=== PATIENT | male | born 1990 | race Caucasian/White ===

== ENCOUNTER 2017-01-30 05:59 | Day surgery (SDC) | payer OTHER ==
[2017-01-25 10:55] LABS: Basophils # (auto) 0 uL; Basophils % (auto) 0.4 % (0.0-2.0); Eosinophils # (auto) 0.6 uL; Eosinophils % (auto) 6.7 % (0.0-7.0); Hematocrit 42.6 % (41.0-53.0); Hemoglobin 14.6 g/dL (13.5-17.5); Lymphocytes # (auto) 1.7 uL; Mean Corpuscular Hemoglobin 31.3 pg (28.0-32.0); Mean Corpuscular Hgb Conc. 34.3 g/dL (32.0-36.0); Mean Corpuscular Volume 91.3 fL (80.0-100.0); Mean Platelet Volume 8.4 fL (7.4-10.4); Monocytes # (auto) 0.7 uL; Neutrophils # (auto) 5.9 uL; Neutrophils % (auto) 65.9 % (37.0-80.0); Platelet Count (auto) 287 10^3/uL (140-450); Red Cell Distribution Width 12.8 % (11.6-16.0)
[2017-01-25 11:03] LABS: Urine Bilirubin Negative (Negative); Urine Blood Negative /uL (Negative); Urine Color Yellow (Yellow); Urine Glucose Normal (Normal); Urine Ketone Negative (Negative); Urine Mucus FEW (None Seen); Urine Nitrite Negative (Negative); Urine RBC <1 /hpf (0 - 3); Urine Urobilinogen Normal (Negative); Urine pH 5.5 (5.0-8.0)
[2017-01-25 11:10] LABS: INR 0.97 (0.9-1.15); Partial Thromboplastin Time 33.8 sec (22.64-33.71); Prothrombin Time 10.6 sec (9.37-12.3)
[2017-01-25 11:21] LABS: Bilirubin, Total 0.4 mg/dL (0.2-1.0); Calcium 8.8 mg/dL (8.5-10.1); Potassium 3.7 mmol/L (3.5-5.1); Total Protein 7.7 g/dL (6.4-8.2)
[~2017-01-30] VITALS: Ht 177.8 cm; Wt 93.0 kg
[2017-01-30] MEDS ORDERED: ceFAZolin 1GM/50ML D5W 50 ML IV ONE (06:49)
[2017-01-30] MEDS ORDERED: methylPREDNISolone ACETATE 80 MG/ML VL ONE (06:56)
[2017-01-30] MEDS ORDERED: ROPIVACAINE 0.5% (5MG/ML) 20ML AMPULE IJ ONE (06:56)
[2017-01-30] MEDS ORDERED: ceFAZolin 1GM VL ONE (06:56)
[2017-01-30] MEDS ORDERED: BUPIVACAINE 0.75% INJ 10ML MPV SDV IJ ONE (06:56)
[2017-01-30] MEDS ORDERED: MIDAZOLAM HCL 1MG/1ML-2 ML VIAL ONE (07:25)
[2017-01-30] MEDS ORDERED: fentaNYL CITRATE 100 MCG/2 ML VL ONE (07:25)
[2017-01-30] MEDS ORDERED: VERAPAMIL 2.5MG/ML INJ 2ML VIAL IV ONE (07:26)
[2017-01-30] MEDS ORDERED: DEXAMETHASONE SOD PHOS 10MG/1ML VIAL INJ IV ONE (07:31)
[2017-01-30] MEDS ORDERED: GLYCOPYRROLATE 0.2 MG/ML 1ML VIAL IV ONE (07:31)
[2017-01-30] MEDS ORDERED: PROPOFOL 10 MG/ML 20 ML IV ONE (07:31)
[2017-01-30] MEDS ORDERED: ONDANSETRON HCL 4 MG/2 ML VIAL IV ONE ×2 (07:31→08:30)
[2017-01-30] MEDS ORDERED: HYDROmorphone HCL 2 MG/ML VL IV PRN (08:30)
[2017-01-30 09:25] VITALS: BP 120/76
== END 2017-01-30 09:25 | disposition home or self-care (01) ==
LOC: SUR 05:59
PROVIDERS: ATTEND Podiatrist Foot & Ankle Surgery
DX: M89.8X7 Other specified disorders of bone, ankle and foot (principal)
CPT/HCPCS: 28104; 36415; 80053; 81001; 85025; 85610; 85730; 88304; 88311; J0690; J1100; J2250; J2405; J2704; J3010; J3490; Q4139

== ENCOUNTER 2017-06-05 09:18 | Day surgery (SDC) | payer OTHER ==
[2017-06-03 16:01] LABS: Basophils # (auto) 0 uL; Basophils % (auto) 0.4 % (0.0-2.0); Eosinophils # (auto) 0.1 uL; Eosinophils % (auto) 1.1 % (0.0-7.0); Hematocrit 44.2 % (41.0-53.0); Hemoglobin 15.1 g/dL (13.5-17.5); Lymphocytes # (auto) 1.7 uL; Lymphocytes % (auto) 17.2 % (10.0-50.0); Mean Corpuscular Hgb Conc. 34.2 g/dL (32.0-36.0); Mean Corpuscular Volume 93.4 fL (80.0-100.0); Monocytes # (auto) 0.9 uL; Monocytes % (auto) 9.1 % (0.0-12.0); Neutrophils % (auto) 72.2 % (37.0-80.0); Nucleated Red Blood Cells % 0.2 %; Platelet Count (auto) 267 10^3/uL (140-450); Red Blood Cells 4.73 10^6/uL (4.5-5.90); Red Cell Distribution Width 13.1 % (11.8-14.3); White Blood Cell 9.7 10^3/uL (4.4-10.8)
[2017-06-03 16:13] LABS: Albumin 4.2 g/dL (3.4-5.0); BUN/Creatinine Ratio 16.5; Bilirubin, Total 0.5 mg/dL (0.2-1.0); Calcium 9.1 mg/dL (8.5-10.1); Potassium 4.1 mmol/L (3.5-5.1)
[2017-06-03 16:16] LABS: Partial Thromboplastin Time 31.5 sec (22.64-33.71); Prothrombin Time 10.9 sec (9.37-12.3)
[2017-06-03 16:44] LABS: Urine Bacteria NONE SEEN /hpf (None Seen); Urine Blood Negative /uL (Negative); Urine Hyaline Cast FEW /lpf (0 - 2); Urine Mucus FEW (None Seen); Urine Specific Gravity 1.032 (1.001-1.035); Urine WBC <1 /hpf (0 - 3)
[~2017-06-05] VITALS: Ht 177.8 cm; Wt 83.9 kg
[~2017-06-05 09:18] MED LIST: IBUP800T24 PO; OMEP20CA74 PO; SERT-274 PO; TRAZ50TA2 PO
[2017-06-05] MEDS ORDERED: ceFAZolin 1GM/50ML 50 ML IV ONE (09:56)
[2017-06-05] MEDS ORDERED: PROPOFOL 10 MG/ML 20 ML IV ONE (13:39)
[2017-06-05] MEDS ORDERED: ONDANSETRON HCL 4 MG/2 ML VIAL ONE (13:39)
[2017-06-05] MEDS ORDERED: MIDAZOLAM HCL 1MG/1ML-2 ML VIAL ONE (13:39)
[2017-06-05] MEDS ORDERED: fentaNYL CITRATE 100 MCG/2 ML VL ONE (13:39)
[2017-06-05] MEDS ORDERED: methylPREDNISolone ACETATE 80 MG/ML VL ONE (14:01)
[2017-06-05] MEDS ORDERED: BUPIVACAINE 0.75% INJ 10ML MPV SDV IJ ONE (14:01)
[2017-06-05] MEDS ORDERED: KETOROLAC TROMETH 30 MG/ML 1ML VIAL IV ONE (14:30)
[2017-06-05] MEDS ORDERED: HYDROmorphone HCL 2 MG/ML VL IV PRN (14:30)
[2017-06-05] MEDS ORDERED: METOCLOPRAMIDE HCL 5MG/ml INJ 2ml VIAL IV ONE (14:30)
[2017-06-05 15:29] VITALS: BP 123/75
[2017-06-28] MEDS ORDERED: CITA-73 PO (10:24)
[2017-06-28] MEDS ORDERED: BUSP10TA90 PO (10:24)
[2017-06-28] MEDS ORDERED: HYDR-4683 PO (10:24)
== END 2017-06-05 15:35 | disposition home or self-care (01) ==
LOC: SUR 09:18
PROVIDERS: ATTEND Podiatrist Foot & Ankle Surgery
DX: M72.2 Plantar fascial fibromatosis (principal); D69.6 Thrombocytopenia, unspecified; D75.9 Disease of blood and blood-forming organs, unspecified
CPT/HCPCS: 28060; 36415; 80053; 81001; 85025; 85610; 85730; 88305; J0690; J1885; J2250; J2405; J2704; J3010; J3490

== ENCOUNTER 2017-07-03 07:32 | Day surgery (SDC) | payer OTHER ==
[2017-06-28 11:25] LABS: Basophils # (auto) 0 uL; Basophils % (auto) 0.4 % (0.0-2.0); Eosinophils # (auto) 0.4 uL; Eosinophils % (auto) 6.4 % (0.0-7.0); Hematocrit 42.3 % (41.0-53.0); Hemoglobin 14.6 g/dL (13.5-17.5); Lymphocytes # (auto) 1.5 uL; Lymphocytes % (auto) 21.9 % (10.0-50.0); Mean Corpuscular Hemoglobin 32.1 pg (28.0-32.0); Mean Corpuscular Hgb Conc. 34.4 g/dL (32.0-36.0); Mean Corpuscular Volume 93.4 fL (80.0-100.0); Monocytes # (auto) 0.4 uL; Monocytes % (auto) 5.9 % (0.0-12.0); Neutrophils # (auto) 4.5 uL; Neutrophils % (auto) 65.4 % (37.0-80.0); Platelet Count (auto) 259 10^3/uL (140-450); Red Blood Cells 4.53 10^6/uL (4.5-5.90); Red Cell Distribution Width 12.8 % (11.8-14.3); White Blood Cell 6.9 10^3/uL (4.4-10.8)
[2017-06-28 11:27] LABS: BUN/Creatinine Ratio 15.7; Bilirubin, Total 0.5 mg/dL (0.2-1.0); Calcium 8.9 mg/dL (8.5-10.1); INR 0.98 (0.9-1.15); Partial Thromboplastin Time 31.5 sec (22.64-33.71); Potassium 3.8 mmol/L (3.5-5.1); Prothrombin Time 10.7 sec (9.37-12.3); Total Protein 7.7 g/dL (6.4-8.2)
[2017-06-28 11:34] LABS: Urine Bacteria NONE SEEN /hpf (None Seen); Urine Blood Negative /uL (Negative); Urine Mucus FEW (None Seen); Urine Specific Gravity 1.033 (1.001-1.035); Urine WBC 1 /hpf (0 - 3)
[~2017-07-03] VITALS: Ht 177.8 cm; Wt 93.0 kg
[~2017-07-03 07:32] MED LIST changes: +BUSP10TA90 PO; +CITA-73 PO; +HYDR-4683 PO; -SERT-274 PO; -TRAZ50TA2 PO
[2017-07-03] MEDS ORDERED: ceFAZolin 1GM/50ML 50 ML IV ONE (07:55)
[2017-07-03] MEDS ORDERED: busPIRone HCL 10 MG TAB PO ONE (08:15)
[2017-07-03] MEDS ORDERED: BUPIVACAINE 0.75% INJ 10ML MPV SDV IJ ONE (09:27)
[2017-07-03] MEDS ORDERED: SODIUM CHLORIDE LOCK 10 ML ONE (09:30)
[2017-07-03] MEDS ORDERED: fentaNYL CITRATE 100 MCG/2 ML VL ONE (09:30)
[2017-07-03] MEDS ORDERED: PROPOFOL 10 MG/ML 20 ML IV ONE (09:30)
[2017-07-03] MEDS ORDERED: MIDAZOLAM HCL 1MG/1ML-2 ML VIAL ONE (09:30)
[2017-07-03] MEDS ORDERED: ONDANSETRON HCL 4 MG/2 ML VIAL ONE (09:30)
[2017-07-03] MEDS ORDERED: KETOROLAC TROMETH 30 MG/ML 1ML VIAL IV ONE (10:45)
[2017-07-03] MEDS ORDERED: METOCLOPRAMIDE HCL 5MG/ml INJ 2ml VIAL IV ONE (10:45)
[2017-07-03] MEDS ORDERED: HYDROmorphone HCL 2 MG/ML VL IV PRN (10:45)
[2017-07-03 11:27] VITALS: BP 129/79
== END 2017-07-03 11:27 | disposition home or self-care (01) ==
LOC: SUR 07:32
PROVIDERS: ATTEND Podiatrist Foot & Ankle Surgery
DX: M72.2 Plantar fascial fibromatosis (principal); D69.6 Thrombocytopenia, unspecified; K21.9 Gastro-esophageal reflux disease without esophagitis; E66.9 Obesity, unspecified; Z68.26 Body mass index [BMI] 26.0-26.9, adult
CPT/HCPCS: 28060; 36415; 80053; 81001; 85025; 85610; 85730; J0690; J1170; J2250; J2405; J2704; J3010; J3490

== ENCOUNTER 2017-07-15 16:11 | Emergency (ER) | payer OTHER ==
[~2017-07-15] VITALS: Ht 177.8 cm; Wt 93.0 kg
[2017-07-15 16:26] VITALS: BP 129/77
[2017-07-15] MEDS ORDERED: LORazepam 0.5 MG TAB PO ONE (17:00)
[2017-07-15] MEDS ORDERED: HYDROmorphone HCL 2 MG/ML VL IM ONE (17:00)
[2017-07-15] MEDS ORDERED: ONDANSETRON ODT 4 MG TAB PO ONE (17:00)
== END 2017-07-15 17:18 | disposition home or self-care (01) ==
LOC: ER 16:11
DX: G89.4 Chronic pain syndrome (principal); M54.5 Low back pain; Z79.899 Other long term (current) drug therapy
CPT/HCPCS: 96372; 99283; J1170; Q0162